=== PATIENT | male | born 1950 | race Caucasian/White ===

== ENCOUNTER 2017-04-24 20:40 | Inpatient (IN) | payer MEDICARE, OTHER ==
[~2017-04-24 20:40] MED LIST: ISOVUE-370 76%-LOCM 1 ML ONE
[2017-04-24 20:54] LABS: #Lymphocytes 0.7 thou/uL (1.20-3.40); #Monocytes 0.7 thou/uL (0.11-0.59); #Neutrophils 12.7 thou/uL (1.40-6.50); %Basophils 0.1 % (0.0-1.0); %Eosinophils 0.1 % (0.0-10.0); %Lymphocytes 4.9 % (21.0-51.0); %Monocytes 5.1 % (0.0-10.0); %Neutrophils 89.9 % (42.0-75.0); Hemoglobin 14.6 g/dL (14.0-18.0); Mean Corpuscular HGB CONC 33.8 g/dL (32.0-36.0); Mean Corpuscular Hemoglobin 29.1 pg (27.0-31.0); Mean Platelet Volume 7.2 fL (7.4-10.4); Platelet Count 227 thou/uL (130-400); RBC Distribution Width 12.2 % (11.5-14.5); Red Blood Cell (RBC) Count 5.03 mill/uL (4.70-6.10); White Blood Cell (WBC) Count 14.1 thou/uL (4.8-10.8)
[2017-04-24 21:00] LABS: INR-International Normal Ratio 1.1; PTT 25.5 SEC (22.9-36.1); Prothrombin Time 14.2 SEC (12.0-14.7)
--- NOTE | 2017-04-24 21:22 | CT ---
CT OF HEAD NONCONTRAST 04/24/17 CLINICAL HISTORY: Posttraumatic pain. FINDINGS: No evidence of acute intracranial hemorrhages, mass effect or midline shift. No depressed calvarial f racture. There is no pneumocephalus. Mild right frontal scalp prominence is seen. IMPRESSION: No acute intracranial hemorrhage or mass effect. Notification of results placed at 2103 hours, 04/24/17. Code CR
[2017-04-24 21:23] LABS: ALT (SGPT) 22 U/L (8-55); AST (SGOT) 34 U/L (5-34); Albumin 4.2 g/dL (3.4-4.8); Alkaline Phosphatase 55 U/L (40-150); Anion Gap 14 mmol/L (10-20); BUN (Urea Nitrogen) 29 mg/dL (8.4-25.7); Bilirubin, Total 0.9 mg/dL (0.2-1.2); CK (CPK) 928 U/L (30-200); Calc. Creatinine Clearance 0 mL/min (70-130); Calcium 9.2 mg/dL (7.8-10.44); Carbon Dioxide 22 mmol/L (23-31); Chloride 107 mmol/L (98-107); Estimated GFR-MDRD Greater than 90; Globulin 2.8 g/dL (2.4-3.5); Glucose 118 mg/dL (80-115); Potassium 3.9 mmol/L (3.5-5.1); Sodium 139 mmol/L (136-145)
--- NOTE | 2017-04-24 21:25 | RAD ---
PORTABLE AP CHEST X-RAY 04/24/17 HISTORY: Level II trauma. Patient fell 15 feet from a ladder 8 to 9 hours ago. FINDINGS: Postsurgical changes related to anterior cervical fusion lower cervical spine are imaged. Cardiac pushpa houette is magnified by projection. Pulmonary vasculature is within normal limits. The lungs are nina r. No pneumothorax or pleural effusion is seen. Degenerative changes are noted in the spine. No other osseous abnormality is seen on this exam. IMPRESSION: No acute cardiopulmonary process. POS: [facility]
[2017-04-24] MEDS ORDERED: Lorazepam 2 MG/ML VIAL ONE ×2 (21:39→21:58)
[2017-04-24] MEDS ORDERED: Dexamethasone 10 MG/ML VIAL ONE (21:39)
[2017-04-24 21:40] LABS: Bilirubin Negative (Negative); Blood, Urine Negative (Negative); Clarity CLOUDY (Clear); Glucose, Urine (Dipstick) Negative (Negative); Leukocyte Negative (Negative); Nitrite Negative (Negative); Protein, Urine (Dipstick) Negative (Neg-Trace); Urobilinogen 0.2 mg/dL (0.2-1.0); pH, Urine 5.5 (5.0-9.0)
[2017-04-24 21:42] LABS: Specific Gravity, Urine 1.046 (1.002-1.036)
--- NOTE | 2017-04-24 22:02 | RAD ---
AP PELVIS RADIOGRAPH 04/24/17 HISTORY: Level II trauma. Patient fell 15 feet from a ladder 8 to 9 hours ago. FINDINGS: The patient is rotated, but no obvious fracture is appreciated on this exam. No evidence of a disloca tion. There is minimal bilateral hip osteoarthritis. Calcifications overlie the pelvis likely related to phleboliths and vascular type calcifications. Degenerative changes are seen in the spine. IMPRESSION: No obvious acute fracture is visualized involving the pelvis. POS: [facility]
--- NOTE | 2017-04-24 22:45 | CT ---
CERVICAL SPINE CT NONCONTRAST 04/24/17 INDICATION: Posttraumatic pain. FINDINGS: Craniocervical junction is intact. There is a retrolisthesis of C3 on 4. There is multilevel anterior fusion spanning C5 through C7. There is heterotopic density adjacent the anterior aspect of the C3-4 disc space. There is fracture involving posterior elements of C4 at the posterior aspect of each willis eufemia, posterior aspect of each C5 lamina and the bilateral lamina of C6. Fracture extension into the b ase of the C4 and C6 spinous processes. IMPRESSION: Multilevel fracture involvement of the cervical spine posterior elements as above. There is retrolist hesis of C3 on 4. Recommend neurosurgical consultation. Findings called to the ER physician, Danial Boss at 2104 hours, 04/24/17. Code CR
[2017-04-24] MEDS ORDERED: hydrALAZINE 20 MG/ML VIAL SLOW IVP PRN (23:13)
[2017-04-24] MEDS ORDERED: Morphine 4 MG/ML Carpuject IVP PRN (23:13)
[2017-04-24] MEDS ORDERED: Sodium Bicarbonate 150 MEQ in Dextrose 5% in Water 1,000 ML IV ONE ×2 (23:13)
[2017-04-24] MEDS ORDERED: Dextrose 5% in Water 1,000 ML IV PRN (23:13)
[2017-04-24] MEDS ORDERED: Ondansetron ODT 4 MG TAB PO PRN (23:13)
[2017-04-24] MEDS ORDERED: Dextrose 50% Abboject 50 ML SYRINGE SLOW IVP PRN (23:13)
[2017-04-24] MEDS ORDERED: Morphine 2 MG/ML SYRINGE ONE (23:14)
--- NOTE | 2017-04-24 23:20 | CT ---
CT CHEST WITH CONTRAST CT ABDOMEN AND PELVIS WITH CONTRAST CT THORACIC SPINE WITH CONTRAST CT LUMBAR SPINE WITH CONTRAST 04/24/17 INDICATION: Posttraumatic pain, fall. FINDINGS: There are patchy opacities of the lower lung zones and posterior lung zones bilaterally. This may be on the basis of atelectasis or mild contusion. No evidence of significant pneumothorax or pleural flu id collection. Incidental note of fractures of the cervical spine which are described on the concurrent cervical spi ne CT exam. Reference that report for details. Scattered small hypoattenuation foci of the hepatic pa renchyma too small to further characterize. There is a small hypodensity involving the posteromedial aspect of the spleen, also incompletely characterized. There are bilateral cysts of the kidneys. No a drenal mass or hematoma. No peripancreatic inflammation. The bowel is incompletely assessed without t he presence of enteric contrast. Colonic diverticulosis is present. Mild scattered atherosclerotic va scular disease is present. Slight T2 superior endplate irregularity is present. Otherwise, evaluation of the thoracolumbar spin e reveals no significant compression fracture or significant subluxation. No displaced fracture of th e sternum. There is heterogeneity and enlargement of the prostate gland which abuts the bladder base. Scattered colonic diverticula is present. IMPRESSION: 1. Scattered patchy opacities of the lungs bilaterally as discussed above which may be on the ba sis of atelectasis and/or mild contusion. Slight T2 superior endplate irregularity is present. 2. Scattered parenchymal hypodensities of the liver, spleen and kidneys, which are likely relate d to scattered cysts. 3. Otherwise, no additional definite acute posttraumatic sequela evident. Notification of findings placed to Dr. Boss at 2116 hours, 04/24/17. Code CR
--- NOTE | 2017-04-24 23:57 | HP ---
DATE OF ADMISSION: 04/24/2017 REQUESTING PHYSICIAN: Dr. Boss. ATTENDING SURGEON: Dr. Michele. CONSULTATION: Neurosurgery, Dr. Nice. HISTORY OF PRESENT ILLNESS: The patient is a 66-year-old man, who reports working on his home this e vening when he was up on a ladder, estimated 15 feet when he fell. The patient had immediate numbnes s, tingling, paralysis to his upper extremities, and he was not able to get himself up. The patient was lying on the ground for approximately 8-9 hours before a neighbor heard him yelling and called [id number] [phone]. The patient was brought to the emergency department, evaluated, examined and was noted to have wh at appeared to be a central cord syndrome with cervical spine fractures, at which time, we were asked to evaluate the patient for admission and obtain neurosurgical consultation. Also, during his labor atory evaluation, it was noted that the patient had mild rhabdomyolysis with an elevated CK, but with normal renal function. ALLERGIES: None. CURRENT MEDICATIONS: Amlodipine, spironolactone, vitamin D, aspirin, sildenafil and fish oil. PAST MEDICAL HISTORY: Hypertension. PAST SURGICAL HISTORY: The patient has had surgery on his neck, a left knee replacement, and surgery to index finger. 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 FAMILY MEDICAL HISTORY: Hypertension. REVIEW OF SYSTEMS: Ten-point review of systems was negative, unless otherwise stated. PHYSICAL EXAMINATION: VITAL SIGNS: Blood pressure 154/88, heart rate 111, respirations 22, temperature is 98.1, oxygen sat uration is 99% on 2 liters via nasal cannula. GENERAL: The patient is resting comfortably in ER bed. He is awake, alert, and oriented x3. Glasgo w coma scale is 15. HEENT: Head: Normocephalic, atraumatic. Eyes: Extraocular motion intact. PERRLA bilaterally. Ea rs: Atraumatic without discharge. Nose: Atraumatic without discharge. Oropharynx is clear. NECK: Currently immobilized in a cervical collar. His trachea is midline. There is no JVD. CHEST: Clear to auscultation with moderate inspiratory and expiratory effort. HEART: Regular rate and rhythm, though does appear tachycardic consistent with his vital signs. ABDOMEN: Soft, flat, nontender with hypoactive bowel sounds. Pelvis is stable. EXTREMITIES: Lower extremities: The patient is able to move his lower extremities much more easily and briskly than his upper extremities. He has gross sensation in both lower extremities. Upper ext remities: He has markedly decreased movement in both his shoulder, elbow, wrists, and hands. Pulses are strong at 2+. Capillary refill is less than 3 seconds. The patient does have decreased sensati on bilaterally. BACK: By report is atraumatic and nontender. LABORATORY RESULTS: White blood cell count 14.1, hemoglobin 14.6, hematocrit 43.2, platelets 227. S odium 139, potassium 3.9, chloride 107, CO2 of 22, BUN 29, creatinine 0.77, glucose 118. LFTs are un remarkable. Lactic acid 1.8. INR 1.1, CK is 928. RADIOGRAPHIC REPORTS: AP chest shows no acute cardiopulmonary process. AP pelvis shows no acute fra cture visualized involving the pelvis. CT of the brain without contrast shows calcification of the l eft internal carotid, [place]. No intracerebral hemorrhage. Body of C1 intact. No skull f racture. CT of the C-spine without contrast shows fractures of the pedicles of C4, C5, C6 with retro listhesis of C3 and C4. CT of the chest, abdomen, and pelvis with IV contrast shows degenerative monica nges of the T and L spine, no acute processes are noted. ASSESSMENT AND PLAN: 1. Status post fall from ladder approximately 15 feet. 2. 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 3. Upper extremity weakness and paresthesias. 4. Elevated CK consistent with rhabdomyolysis without acute renal injury at this time. 5. Pain secondary to trauma. 6. Hypertension. Plan will be to make the patient n.p.o., admit the patient to the surgical floor. He has been evalua loyda by the neurosurgical service, who are starting him on Decadron. He has this MRI ordered for clarence gomez and plan will be to have surgical decompression in the morning. The patient will have pain contr ol, pulmonary toilet, gastritis prophylaxis, Arambula catheter, gastritis, mechanical DVT prophylaxis. Evaluation, examination, laboratory and radiographic findings were discussed with Dr. Michele at time of dictation, she will see the patient.
[2017-04-25] MEDS: Dexamethasone 4 mg/ml Vial SLOW IVP SCH ×2 (00:01→03:13)
--- NOTE | 2017-04-25 00:03 | MRI ---
CERVICAL SPINE MRI NONCONTRAST 04/24/17 CLINICAL HISTORY: Neck injury related to fall from ladder. FINDINGS: Redemonstration of retrolisthesis of C3 on 4. There is susceptibility related to anterior fusion span elsa C4 through C6 which does limit assessment within this region. There is prominent anterior and po sterior paraspinous edema most notable at the upper cervical spine region. There is redundancy of the ligamentum flava at the C3-4 level which does produce posterior mass effect within the thecal sac. T here is a pseudodisc bulge related to the retrolisthesis of C3-4. Combined with the mass effect from ligamentum flava, there is a moderate degree of mass effect upon the cervical spinal cord at the C3-4 level. There is associated cord edema which spans the C2-3 through proximal C4 level. There is marrow edema at multiple levels of the cervical spine involving posterior elements related t o the acute posterior element fractures that are depicted on the preceding CT exam, where osseous det ail is more optimally delineated. There is a mild degree of disc space edema involving the anterior C 3-4 level. There is a superimposed multilevel degenerative change of the postoperative cervical spine. There is minimal superior end plate height loss of T2. There is subtle increased T2 signal that suggests a ginny rotrabecular fracture centered at the superior end plate. There is redundancy and edema about the pos terior paraspinous ligament of the upper to mid cervical spine indicating ligamentous injury. There i s edema of the suboccipital soft tissues. IMPRESSION: Retrolisthesis of C3 on 4 and multilevel marrow edema related to multilevel fractures of the cervical spine as are depicted on the preceding CT cervical spine exam. There is prominent posterior as well as anterior paraspinous edema, and disruption of ligamentum flava and posterior paraspinous ligaments . Associated cord compression of the C3-4 level with cord edema. No obvious intramedullary hemorrhage i s seen. Microtrabecular fracture centered at the superior T2 end plate with minimal associated superior end p late concavity. POS: [facility]
[2017-04-25 00:38] VITALS: BMI 27.1
--- NOTE | 2017-04-25 03:39 | CON ---
DATE OF CONSULTATION: 04/24/2017 ATTENDING PHYSICIAN: Edgar Nice M.D. HISTORY OF PRESENT ILLNESS: The patient is a 66-year-old male with a past medical history of hypertension, who presented to the emergency department per [facility] after being found down by his neighbor after apparent fall from a 15- feet ladder, which patient reports occurred at approximately 10:30 this morning. The patient reports he lost his footing going up the ladder and fell prone with sudden onset loss of sensation and strength to the UEs. He reports he yelled for several hours before a neighbor finally heard him and called EMS. The patient was also complaining of cramping throughout the body. Upon arrival to the emergency department, CT of the head, cervical spine, chest, abdomen, and pelvis were done and were notable for retrolisthesis C3-C4 with some spinal canal compromise as well as multiple spinous process and laminar fractures at C4, C5, and C6. CT head was negative for acute abnormality. CT of the chest, abdomen, and pelvis was also negative for any acute abnormality. The patient's lab work was notable for an elevated CPK 928 consistent with rhabdomyolysis as well as an elevated spec grav and no urine ketones consistent with dehydration. The Trauma Service was also notified of the patient's condition. PAST MEDICAL HISTORY: Hypertension. PAST SURGICAL HISTORY: C4-C6 ACDF, left knee replacement, finger surgery. SOCIAL HISTORY: The patient does not smoke, drink, or use any drugs. FAMILY HISTORY: Noncontributory. ALLERGIES: Patient has no known drug allergies. REVIEW OF SYSTEMS: Per HPI. PHYSICAL EXAMINATION: VITAL SIGNS: Heart rate 111, blood pressure 154/88, respiration rate is 22. The patient is 99% on 2 liters. His temperature is 98.1. CONSTITUTIONAL: He is awake, alert, and oriented x4. HEAD: Normocephalic, atraumatic. EYES: PERRLA. Extraocular movements are intact. ENT: Oral mucosa is dry. He has a normal voice. NECK: He is currently wearing a cervical collar. RESPIRATORY: The patient is breathing comfortably. No evidence of respiratory distress. CARDIOVASCULAR: The patient is tachycardic. MUSCULOSKELETAL: He has decreased sensation to bilateral upper and lower extremities. He is weak in bilateral upper extremities with flaccid paralysis on the left, unable to wiggle his fingers slightly on the right upper extremity , lower extremity has 2/5 strength in bilateral lower extremities. No reflex asymmetry. NEUROLOGIC: He is A and O x4. GCS of 15. He has normal speech. Normal cranial nerve exam. He has decreased sensation to bilateral upper and lower extremities. Weakness to bilateral upper extremities/paralysis on the left, able to slightly move his fingers on the right upper extremity, 2/5 strength to bilateral lower extremities. ASSESSMENT AND PLAN: The patient appears to have retrolisthesis of C3, diffuse C4 as well as some multiple spinous process and laminar fractures at C4-C6, status post fall from a ladder. We will plan to get an MRI for further evaluation of his cervical spine injury. He will also be started on Decadron 4 , q.6h. He will be kept in a cervical collar at all times and under strict spinal precautions. He will be admitted primarily to the Trauma Service. They will assist in management of his acute rhabdomyolysis and dehydration. We will plan for posterior decompression and fusion in the morning. I have made the patient n.p.o. at midnight. Please reach out to Neurosurgery Service for additional questions or concerns. SOL
[2017-04-25 05:43] LABS: #Lymphocytes 0.6 thou/uL (1.20-3.40); #Monocytes 0.5 thou/uL (0.11-0.59); #Neutrophils 10.4 thou/uL (1.40-6.50); %Lymphocytes 5.5 % (21.0-51.0); %Monocytes 4.4 % (0.0-10.0); %Neutrophils 90.1 % (42.0-75.0); Hemoglobin 14.6 g/dL (14.0-18.0); Mean Corpuscular HGB CONC 33.6 g/dL (32.0-36.0); Mean Corpuscular Hemoglobin 28.8 pg (27.0-31.0); Mean Corpuscular Volume 85.9 fl (80.0-94.0); Mean Platelet Volume 7.2 fL (7.4-10.4); Platelet Count 212 thou/uL (130-400); RBC Distribution Width 12.1 % (11.5-14.5); Red Blood Cell (RBC) Count 5.05 mill/uL (4.70-6.10); White Blood Cell (WBC) Count 11.6 thou/uL (4.8-10.8)
[2017-04-25 06:18] LABS: Anion Gap 10 mmol/L (10-20); BUN (Urea Nitrogen) 13 mg/dL (8.4-25.7); CK (CPK) 3303 U/L (30-200); Calc. Creatinine Clearance 128 mL/min (70-130); Calcium 8.4 mg/dL (7.8-10.44); Carbon Dioxide 27 mmol/L (23-31); Chloride 104 mmol/L (98-107); Estimated GFR-MDRD Greater than 90; Glucose 139 mg/dL (80-115); Potassium 3.6 mmol/L (3.5-5.1); Sodium 137 mmol/L (136-145)
[2017-04-25] MEDS ORDERED: ePHEDrine/0.9% NaCl/PF SYRINGE 50 mg/10 ml ONE (07:15)
[2017-04-25] MEDS ORDERED: Lidocaine 1% PF 5 ML VIAL ONE (07:15)
[2017-04-25] MEDS ORDERED: Dexamethasone 20 MG/5 ML VIAL ONE (07:15)
[2017-04-25] MEDS ORDERED: Propofol 200 MG/20 ML VIAL ONE (07:15)
[2017-04-25] MEDS ORDERED: PHENYLEPHRINE-NS 100 MCG/ML 10 ML SYRINGE ONE (07:15)
[2017-04-25] MEDS ORDERED: Ondansetron HCl/PF 4 MG/2 ML Vial ONE (07:15)
[2017-04-25] MEDS ORDERED: Sodium Chloride 0.9% 10 ML ONE (07:15)
[2017-04-25] MEDS ORDERED: Succinylcholine Chloride 20 MG/ML 10 ml SYRINGE FS ONE (07:15)
[2017-04-25] MEDS ORDERED: Bacitracin Zinc Ointment 30 gm TUBE ONE (07:16)
[2017-04-25] MEDS ORDERED: Fentanyl 100 MCG/2 ML VIAL ONE ×2 (07:38→08:26)
[2017-04-25] MEDS ORDERED: CEFAZOLIN/Water 2 GM/20 ML SYRINGE ONE (07:40)
[2017-04-25] MEDS ORDERED: Famotidine/PF 20 mg/2ml Vial SLOW IVP SCH (09:00)
--- NOTE | 2017-04-25 09:43 | OP ---
DATE OF PROCEDURE: 04/25/2017 SURGEON: Edgar Nice M.D. CLINICAL DOCUMENTATION CLERK: Fadumo Barber PA-C PROCEDURES: C3-C4 laminectomy, posterolateral arthrodesis, lateral mass screws, demineralized bone m atrix, and local morselized autograft C3-C4. PROCEDURE IN DETAIL: The patient was brought to the operating room, intubated. He was rolled in the prone position in the cervical collar with the head fixed in the javad director of head start and the head julio ntained in a neutral position throughout. We obtained x-rays to ensure adequate alignment and the al ignment was actually quite satisfactory and somewhat better aligned then with the initial fracture. After secure positioning, a midline posterior cervical incision was made exposing C2 through C5. We found C4 and the posterior elements of C5 to be fractured as expected. We performed a complete C4 an d inferior C3 laminectomy and completely decompress the spinal cord. Next, lateral mass screws were placed at C3 and C4 bilaterally using lateral fluoroscopic guidance. A eric was secured between the s crews, connected by nuts which were final tightened. The wound was then extensively irrigated, immac ulate hemostasis was secured. A combination of demineralized bone matrix and local morselized autogr aft was laid over the laminar and posterolateral surfaces for the purpose of arthrodesis. Vancomycin powder was applied and the wound was closed in anatomic layers.
[2017-04-25] MEDS ORDERED: Fentanyl 250 MCG/5 ML VIAL ONE (10:20)
[2017-04-25] MEDS: Famotidine/PF 20 mg/2ml Vial SLOW IVP SCH ×2 (11:45→22:17)
--- NOTE | 2017-04-25 11:55 | PRG ---
DATE OF SERVICE: 04/25/2017 SUBJECTIVE: A 66-year-old male fell from the ladder and was down for a prolonged period of time. He has dense neurologic deficit including essentially no movement of the upper extremities. He has dean ulder shrug, presumably from spinal accessory nerve. He has burning dysesthesias in both arms. He s eems to have relatively preserved motor in the lower extremities, but deranged sensory function in th e lower extremities and he has urinary incontinent. Imaging reveals an old C4-C6 anterior cervical discectomy and fusion, which is well healed. He has s ignificant posterior bony disruption most pronounced at C4 where there is a fracture across the super ior lamina and the superior aspect of C4 down the spinal canal to some degree. There is some retroli sthesis of C3 and C4. MRI confirms spinal cord compression at this level. IMPRESSION AND PLAN: The patient sustained a severe spinal cord injury. I am recommending surgery f or the purpose of decompression and stabilization, although I am not optimistic about recovery of haim rologic function, particularly given the prolonged period prior to seeking medical attention. His me tabolic derangement has largely been corrected, although his CKs are still elevated. I am recommendi ng proceeding with posterior decompression and stabilization, most focused at the C3-C4 level. We di scussed indications, risks, benefits, and alternatives of this procedure with the patient and his fam waleska and they expressed understanding and wished to proceed.
--- NOTE | 2017-04-25 15:36 | PRG ---
DATE OF SERVICE: 04/25/2017 ATTENDING PHYSICIAN: Dr. Michele. SUBJECTIVE: The patient is a 66-year-old male who had a fall of approximately 15 feet yesterday from a ladder. He had immediate numbness, tingling and paralysis to his upper extremities and was not ab le to get himself up. He laid in his yard for approximately 8-9 hours before he was discovered by a neighbor and was brought to the [facility]. Evaluation showed fractures of C4, C5, and C6. He is now postop day 0 status post posterior decompression and fusion. Currently, [facility]. He is not reporting any pain at the moment. OBJECTIVE: VITAL SIGNS: BP 135/74, pulse 58, temperature 97.8, respirations 16, O2 sat 98% on 2 liters nasal ca nnula. GENERAL: The patient is a middle-aged adult male, resting comfortably in bed. He does not appear to be in any acute distress. HEENT: Normocephalic. He has a laceration on his right lateral head, which has been stapled. [facility] C[facility]lar in place. RESPIRATORY: The patient's lung sounds are clear to auscultation bilaterally. CARDIOVASCULAR: He has a regular rate and rhythm with a normal S1 and S2. ABDOMEN: Soft, nontender, nondistended. His bowel sounds are hypoactive. EXTREMITIES: Lower extremities: He is neurovascularly intact bilaterally. NEUROLOGIC: He moves both lower extremities appropriately on the patient's upper extremities. His l ight touch sensation is intact bilaterally. He has very minimal motor function. His note teller strength i s 1/5 bilaterally. NEUROLOGIC: The patient is alert and oriented x3. His GCS is 15. His neurological deficits are dirk cribed above. LABORATORY DATA: Hematology: WBC is 11.6, hemoglobin 14.6, hematocrit 43.4, platelets 212. Gis Geographer ry: Sodium 137, potassium 3.6, chloride 104, bicarbonate 27, BUN 13, creatinine 0.71, glucose 139. CK 3303. IMAGING: There are no images to review since admission. ASSESSMENT: 1. Status post fall from approximately 15 feet. 2. Central cord syndrome. 3. C3 through C5 fracture status post decompressive laminectomy and fusion. 4. Rhabdomyolysis without acute renal injury. 5. Acute traumatic pain. 6. History of hypertension. PLAN: 1. The patient will be given supportive care measures and pain control as needed, gastritis prophyla xis will be initiated and a chemical DVT prophylaxis will be initiated when okay with Neurosurgery. 2. The patient to remain in a C-collar at all times. 3. The patient will be given aggressive fluid maintenance for rhabdomyolysis. We will continue to t rend kidney function daily. This patient was seen postoperatively and discussed with Dr. Melvin Briceño, who agrees with the asses sment and plan.
--- NOTE | 2017-04-25 15:38 | EKG ---
Test Reason : Blood Pressure : / mmHG Vent. Rate : 112 BPM Atrial Rate : 112 BPM P-R Int : 152 ms QRS Dur : 148 ms QT Int : 368 ms P-R-T Axes : 072 012 034 degrees QTc Int : 502 ms Sinus tachycardia Right bundle branch block Abnormal ECG Confirmed by ELANA AYON, SARTHAK Martini ([id number]), editorial writer YANET MANE ([id number]) on 04/25/2017 3:38:21 PM Referred By: Confirmed By:SARTHAK HUITRON MD
[2017-04-25] MEDS: Ondansetron HCl/PF 4 MG/2 ML Vial IVP PRN (15:43)
[2017-04-25] MEDS: Sodium Chloride 0.9% 1,000 ML IV SCH ×3 (16:18→18:56)
[2017-04-25] MEDS ORDERED: traMADol HCl 50 MG TAB PO SCH (17:30)
[2017-04-25] MEDS ORDERED: traMADol HCl 50 MG TAB PO PRN (17:31)
[2017-04-25] MEDS ORDERED: Acetaminophen 500 MG TAB PO SCH (18:00)
[2017-04-25] MEDS: traMADol HCl 50 MG TAB PO SCH ×2 (18:46→23:31)
[2017-04-25] MEDS ORDERED: HYDROcodone/Acetaminophen 10/325 mg Tablet PO PRN ×2 (22:04)
[2017-04-26] MEDS: Cyclobenzaprine 10 MG TAB PO PRN ×3 (00:09→20:36)
--- NOTE | 2017-04-26 01:08 | ADD-HP ---
ADDENDUM Mr. Lawrence was seen this morning before he was taken to the operating room by Dr. Nice. For fu ll details, please see the H&P dictated by Alfredo Goyal, Trauma PA, in conjunction with whom I saw the patient. In short, Mr. Lawrence is a 66-year-old man who was working on his home. He was about 15 f eet up on a ladder and fell off onto his right side. He was unable to get up and had tingling and pa ralysis of his upper extremities. He was on the ground for 8 or 9 hours before a neighbor heard him and called 911. He had a mildly elevated CK and was found to have multiple cervical fractures and wa s admitted for MRI resuscitation and decompression in the operating room this morning. He has no sig nificant medical problems except for mild hypertension. No allergies. He has had a cervical fusion in the past as well as left knee replacements and some hand surgery, but no abdominal surgeries. He reports no other significant pain. His sensation appears to be mostly intact. A complete physical e xamination was performed by myself with no significant findings except for some mild abdominal tender ness, dense paresis of his upper extremities and he is able to lift his left foot off the bed against gravity and some resistance, but is barely able to lift his right leg off the bed against gravity. Toe and ankle movement is slightly weak, but better. Sensation is intact to all four extremities. L abs and x-rays are reviewed and are as per the record. ASSESSMENT AND PLAN: Spinal cord injury due to cervical fractures and retrolisthesis at the level of C3 and C4 with no other significant injuries identified on imaging or exam. Dr. Nice took him t o the operating room today for decompression and stabilization of cervical fractures. His neurologic prognosis is guarded. No other significant injuries have been identified and his vital signs are st able. He may have some myolysis related to his period of inactivity before he was found, but his yeimy al function and urine output has been okay. We will continue to monitor this and hydrate him.
[2017-04-26] MEDS: traMADol HCl 50 MG TAB PO SCH ×3 (06:23→18:07)
[2017-04-26 07:51] LABS: #Basophils 0.1 thou/uL (0.0-0.2); #Lymphocytes 1.4 thou/uL (1.20-3.40); #Monocytes 1.3 thou/uL (0.11-0.59); #Neutrophils 10.4 thou/uL (1.40-6.50); %Basophils 0.5 % (0.0-1.0); %Eosinophils 0.1 % (0.0-10.0); %Lymphocytes 10.6 % (21.0-51.0); %Monocytes 10.1 % (0.0-10.0); %Neutrophils 78.7 % (42.0-75.0); Hemoglobin 13.6 g/dL (14.0-18.0); Mean Corpuscular HGB CONC 32.7 g/dL (32.0-36.0); Mean Corpuscular Hemoglobin 29.2 pg (27.0-31.0); Mean Corpuscular Volume 89.4 fl (80.0-94.0); Mean Platelet Volume 7.4 fL (7.4-10.4); Platelet Count 197 thou/uL (130-400); RBC Distribution Width 12.4 % (11.5-14.5); Red Blood Cell (RBC) Count 4.66 mill/uL (4.70-6.10); White Blood Cell (WBC) Count 13.2 thou/uL (4.8-10.8)
[2017-04-26 08:14] LABS: Anion Gap 13 mmol/L (10-20); BUN (Urea Nitrogen) 15 mg/dL (8.4-25.7); CK (CPK) 1745 U/L (30-200); Calc. Creatinine Clearance 126 mL/min (70-130); Calcium 8.5 mg/dL (7.8-10.44); Carbon Dioxide 25 mmol/L (23-31); Chloride 103 mmol/L (98-107); Estimated GFR-MDRD Greater than 90; Glucose 83 mg/dL (80-115); Magnesium 2.2 mg/dL (1.6-2.6); Phosphorus 2.3 mg/dL (2.3-4.7); Potassium 3.9 mmol/L (3.5-5.1); Sodium 137 mmol/L (136-145)
[2017-04-26] MEDS: Sodium Chloride 0.9% 1,000 ML IV SCH ×2 (08:27→16:15)
[2017-04-26] MEDS: Acetaminophen 325 MG TAB PO SCH ×3 (08:28→20:31)
[2017-04-26] MEDS: Famotidine/PF 20 mg/2ml Vial SLOW IVP SCH ×2 (08:29→20:36)
--- NOTE | 2017-04-26 18:25 | PRG ---
DATE OF SERVICE: 04/26/2017 ATTENDING PHYSICIAN: Dr. Michele. SUBJECTIVE: The patient is a 66-year-old male who had a fall approximately 15 feet two days ago from a ladder. He laid in his yard for approximately 8-9 hours before being brought to the [place] ED where he was found to have fractures of C4, C5, and C6. He is now postop day #1 status post posteri or decompression and fusion. Currently, he is stable on the surgical floor and continues to have sym ptoms of central cord syndrome. He reports that his pain is mostly well controlled although he does report some "soreness in his shoulders." OBJECTIVE: VITAL SIGNS: Blood pressure 144/85, pulse 74, temperature 97.9, respirations 16, O2 sat 99% on room air. GENERAL APPEARANCE: The patient is a middle-aged adult male, resting comfortably in bed. He has a C -collar in place and does not appear to be in any acute distress. HEENT: Normocephalic, atraumatic. C-collar in place as above. RESPIRATORY: His lung sounds are clear to auscultation bilaterally. CARDIOVASCULAR: He has a regular rate and rhythm with no murmurs, gallops or rubs. ABDOMEN: Soft, nontender, nondistended. His bowel sounds are hypoactive. EXTREMITIES: He is neurovascularly intact bilaterally in his lower extremities. His strength with p lantar flexion is 4/5. His strength with dorsiflexion is 4.5/5. His upper extremities, he has minim al movement in his shoulders, left arm slightly better than the right. 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 NEUROLOGIC: He is alert and oriented x3 this morning. His GCS is 15. Other neurologic abnormalitie s as described above. LABORATORY DATA: Hematology: WBC is 13.2, hemoglobin 13.6, hematocrit 41.7, platelets 197. Hobber ry: Sodium 137, potassium 3.9, chloride 103, bicarbonate 25, BUN 15, creatinine 0.72, glucose 83. C reatine kinase is 1745 today down from 3303 yesterday. IMAGING: There are no images to review today. ASSESSMENT: 1. Status post fall from approximately 15 feet. 2. Central cord syndrome. 3. C3 through C5 fracture status post decompressive laminectomy and fusion. 4. Rhabdomyolysis without acute renal injury. 5. Acute traumatic pain. 6. History of hypertension. PLAN: 1. Continue pain control, gastritis prophylaxis and other supportive care measures as needed. 2. The patient to remain in the C-collar at all times. 3. The patient getting maintenance fluids of 150 mL per hour for rhabdomyolysis. We will continue t o trend kidney function. This patient was discussed over the phone with Dr. Melvin Briceño who agrees with this assessment and plan.
[2017-04-27] MEDS: traMADol HCl 50 MG TAB PO SCH ×4 (00:49→18:49)
[2017-04-27] MEDS: Sodium Chloride 0.9% 1,000 ML IV SCH ×2 (01:02→09:00)
[2017-04-27] MEDS: Acetaminophen 325 MG TAB PO SCH ×4 (03:10→21:44)
[2017-04-27 05:36] LABS: #Lymphocytes 1.2 thou/uL (1.20-3.40); #Neutrophils 6.2 thou/uL (1.40-6.50); %Basophils 0.4 % (0.0-1.0); %Eosinophils 0.5 % (0.0-10.0); %Lymphocytes 14.7 % (21.0-51.0); %Monocytes 11.2 % (0.0-10.0); %Neutrophils 73.2 % (42.0-75.0); Hemoglobin 12.3 g/dL (14.0-18.0); Mean Corpuscular HGB CONC 31.5 g/dL (32.0-36.0); Mean Corpuscular Hemoglobin 27.9 pg (27.0-31.0); Mean Corpuscular Volume 88.4 fl (80.0-94.0); Mean Platelet Volume 7.3 fL (7.4-10.4); Platelet Count 185 thou/uL (130-400); RBC Distribution Width 12.3 % (11.5-14.5); Red Blood Cell (RBC) Count 4.42 mill/uL (4.70-6.10); White Blood Cell (WBC) Count 8.5 thou/uL (4.8-10.8)
[2017-04-27 06:18] LABS: Anion Gap 9 mmol/L (10-20); BUN (Urea Nitrogen) 15 mg/dL (8.4-25.7); Calc. Creatinine Clearance 128 mL/min (70-130); Calcium 8.1 mg/dL (7.8-10.44); Carbon Dioxide 28 mmol/L (23-31); Chloride 102 mmol/L (98-107); Estimated GFR-MDRD Greater than 90; Glucose 92 mg/dL (80-115); Magnesium 2.1 mg/dL (1.6-2.6); Phosphorus 2.1 mg/dL (2.3-4.7); Potassium 3.8 mmol/L (3.5-5.1); Sodium 135 mmol/L (136-145)
[2017-04-27] MEDS: Cyclobenzaprine 10 MG TAB PO PRN ×2 (06:53→21:44)
[2017-04-27] MEDS: Ondansetron HCl/PF 4 MG/2 ML Vial IVP PRN (10:25)
[2017-04-27] MEDS: Gabapentin 300 MG CAP PO SCH ×2 (14:33→21:44)
--- NOTE | 2017-04-27 17:32 | PRG ---
DATE OF SERVICE: 04/27/2017 ATTENDING PHYSICIAN: Melvin Briceño DO SUBJECTIVE: The patient is a 66-year-old male who had a fall of approximately 15 feet, 3 days ago fr om a ladder. He was found lying in his yard after approximately 8 to 9 hours before being brought to [place] ED. He has suffered rhabdomyolysis as a result of his prolonged immobility. Currently, he is postop day #2 status post posterior decompression and fusion for his C4, C5, and C6 fractures. He is currently stable in the surgical floor with improvement, but continuing symptoms of central co rd syndrome. OBJECTIVE: VITAL SIGNS: BP 143/79, pulse 72, temperature 98.7, respirations 20, O2 sat 98% on 1 liter. GENERAL APPERANCE: The patient is a middle-aged adult male resting comfortably in bed. He has a C-c ollar in place and does not appear to be in any acute distress. HEENT: Normocephalic and atraumatic. C-collar in place. RESPIRATORY: His lungs are clear to auscultation bilaterally with normal effort. CARDIOVASCULAR: He has a regular rate and rhythm with no murmurs, gallops, or rubs. ABDOMEN: Soft, nontender, but obese. His bowel sounds are hypoactive. EXTREMITIES: He is neurovascularly intact bilaterally in his lower extremities. His strength with p lantar flexion is 4/5. His strength with dorsiflexion is 4/5. In the upper extremities, he is able to shrug his shoulder somewhat today. Left arm is still slightly better than the right. 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 NEUROLOGIC: He is alert and oriented this morning. His GCS is 15. His other neurological abnormali ties are described above. LABORATORY DATA: Hematology: WBC is 8.5, hemoglobin 12.3, hematocrit 39.1, platelets 185. Chemistr y: Sodium 135, potassium 3.8, chloride 102, bicarbonate 28, BUN 15, creatinine 0.71, glucose 92, yaritza cium 8.1, phosphorus 2.1, magnesium 2.1. IMAGING: There are no images to review today. ASSESSMENT: 1. Status post fall from approximately 15 feet. 2. Central cord syndrome. 3. C3 through C5 fracture status post decompressive laminectomy and fusion. 4. Rhabdomyolysis without acute renal injury. 5. Acute traumatic pain. 6. History of hypertension, present on admission. PLAN: 1. We will continue pain control, gastritis prophylaxis, and other supportive care measures as neede d. 2. The patient to remain in collar at all times. 3. We can discontinue the patient's fluid now that he has good p.o. intake and his CK is strongly tr ending downward. We will continue to monitor kidney function. 4. Case management following for discharge planning, possibly to neural rehabilitation in [place] or to [facility] rehab here. The patient was seen and examined along with Dr. Melvin Briceño, who agrees with the assessment and pl an.
[2017-04-27] MEDS ORDERED: Potassium Phosphate 15 MMOL in Sodium Chloride 0.9% 250 ML 250 ML IVPB SCH (17:45)
[2017-04-27] MEDS: Scopolamine 1.5 mg/72 hour Patch TD SCH (18:52)
[2017-04-28] MEDS: traMADol HCl 50 MG TAB PO SCH ×4 (00:54→17:39)
[2017-04-28] MEDS: Acetaminophen 325 MG TAB PO SCH ×4 (00:54→21:36)
[2017-04-28] MEDS: Senokot S 8.6-50 MG TAB PO SCH ×2 (09:17→21:19)
[2017-04-28] MEDS: Amlodipine 5 MG TAB PO SCH (09:17)
[2017-04-28] MEDS: Tamsulosin HCl 0.4 MG CAP PO SCH (09:17)
[2017-04-28] MEDS: Gabapentin 300 MG CAP PO SCH ×3 (09:17→21:21)
[2017-04-28] MEDS: Polyethylene Glycol 3350 17 GM Packet PO SCH (09:17)
[2017-04-28] MEDS: Bisacodyl 10 MG SUPP PR SCH (09:18)
--- NOTE | 2017-04-28 09:42 | ULT ---
BILATERAL LOWER EXTREMITY VENOUS DOPPLER ULTRASOUND: Date: 04/28/17 HISTORY: Pain in legs, immobility. TECHNIQUE: Weiner scale ultrasound with color flow and spectral Doppler imaging of the deep venous systems of the lower extremities was performed bilaterally. FINDINGS: There is good flow, compression, and augmentation noted in the common femoral, femoral, deep femoral, popliteal, posterior tibial, and greater saphenous veins on either side. IMPRESSION: No evidence of deep venous thrombosis in either lower extremity. POS: WALKER
[2017-04-28] MEDS ORDERED: Spironolactone 25 MG TAB PO SCH (10:00)
--- NOTE | 2017-04-28 19:46 | PRG ---
DATE OF SERVICE: 04/28/2017 ATTENDING PHYSICIAN: Dr. Melvin Briceño. SUBJECTIVE: This patient is a 66-year-old male, who fell approximately 15 feet off of a ladder. He was found lying in his yard after approximately 8-9 hours before being transported to the hospital. He was noted that have rhabdomyolysis. CK peaked on 04/25/2017 at 3303, the following day it was 174 5. His urine color has remained clear yellow. Currently, he is postoperative day #3, status post po sterior decompression and fusion for a C4, C5, and C6 fractures. He is currently stable on the surgi yaritza floor. He is in a cervical collar. He is continuing to work with physical and rn occupational health apy. He states pain is well controlled. OBJECTIVE: VITAL SIGNS: Temperature 97.9, pulse 95, respirations 16, O2 sat is 93% on room air, and blood press ure is 130/88. GENERAL: The patient is a well-developed, well-nourished male sitting up in bed. No acute distress. HEENT: Normocephalic, atraumatic. Cervical collar in place. RESPIRATORY: No respiratory distress. Respirations even and unlabored. The patient currently pulli ng 1500 mL on incentive spirometer. CARDIOVASCULAR: Regular rate and rhythm. ABDOMEN: Soft, nontender, nondistended. EXTREMITIES: Weakness noted to all extremities, right greater than left. He is currently experienci ng a needle-like tingling sensation when his upper extremities are touched. NEUROLOGIC: GCS 15. Awake, alert, oriented x3. ASSESSMENT: 1. Status post fall from height. 2. C3 through C5 fracture status post decompressive laminectomy and fusion. 3. Central cord syndrome. 4. Rhabdomyolysis, resolving. 5. Acute traumatic pain, controlled. PLAN: 1. Discussed with Neurosurgery today about initiation of chemical DVT prophylaxis. At the time of t his dictation, a venogram has been obtained and there is no evidence for deep venous thrombosis in bi lateral lower extremities. The patient will be started on Lovenox 30 mg b.i.d. 2. Continue cervical collar as ordered by Neurosurgery. 3. Case management following for discharge planning. After extensive discussion with family, it romulo ears that the patient's choice is to be discharged to [facility] rehabilitation in [place]. 4. The patient is medically cleared for discharge when accepted to neuro rehabilitation. The patient was seen and examined with Dr. Briceño, who agrees with the assessment and plan.
[2017-04-28] MEDS: Cyclobenzaprine 10 MG TAB PO PRN (21:19)
[2017-04-28] MEDS: Enoxaparin Sodium 30 MG/0.3 ML SYRINGE SC SCH (21:36)
[2017-04-29] MEDS: Acetaminophen 325 MG TAB PO SCH ×2 (00:58→08:14)
[2017-04-29] MEDS: traMADol HCl 50 MG TAB PO SCH ×2 (00:58→06:37)
[2017-04-29] MEDS ORDERED: Spironolactone 25 MG TAB PO SCH (08:00)
[2017-04-29] MEDS: Spironolactone 25 MG TAB PO SCH (08:14)
[2017-04-29] MEDS: Tamsulosin HCl 0.4 MG CAP PO SCH (08:14)
[2017-04-29] MEDS: Senokot S 8.6-50 MG TAB PO SCH ×2 (08:14→21:10)
[2017-04-29] MEDS: Amlodipine 5 MG TAB PO SCH (08:15)
[2017-04-29] MEDS: Enoxaparin Sodium 30 MG/0.3 ML SYRINGE SC SCH ×2 (08:15→21:11)
[2017-04-29] MEDS: Bisacodyl 10 MG SUPP PR SCH (08:15)
[2017-04-29] MEDS: Polyethylene Glycol 3350 17 GM Packet PO SCH (08:15)
[2017-04-29] MEDS: Gabapentin 300 MG CAP PO SCH (08:15)
[2017-04-29] MEDS ORDERED: Morphine 2 MG/ML SYRINGE SLOW IVP PRN (08:54)
[2017-04-29] MEDS ORDERED: Pregabalin 25 MG CAP PO SCH (09:00)
[2017-04-29] MEDS ORDERED: Gabapentin 300 MG CAP PO SCH (09:00)
[2017-04-29] MEDS ORDERED: Ketorolac Tromethamine 30 MG/ML VIAL IVP SCH (09:00)
[2017-04-29] MEDS ORDERED: HYDROcodone/Acetaminophen 10/325 mg Tablet PO PRN (09:29)
[2017-04-29] MEDS: HYDROcodone/Acetaminophen 10/325 mg Tablet PO SCH ×4 (09:40→21:10)
--- NOTE | 2017-04-29 10:02 | PRG ---
DATE OF SERVICE: 04/29/2017 HISTORY OF PRESENT ILLNESS: A 66-year-old man postoperative day #4 status post C3-C4 laminectomy for C3/C4 fracture dislocation and a central cord syndrome. The patient remains functionally quadripleg ic. He does, however, have movement to both lower extremities, left upper extremity motor function i s improved. The patient is able to make a fist in the left hand. His sensation is preserved in bila teral lower extremities as well as left upper extremity. Sensation is preserved in the right upper e xtremity down to the level of the wrist. The patient had no intrinsic movement of the right hand. T his morning, he is complaining of severe neck and right shoulder pain. He also complains of profound nausea with minimum relief with antiemetics. He has not had any bowel movement, although he is pass ing flatus. He denies any dyspnea. He has a good cough effort today. He is using incentive spirome ter achieving 5834-9149 mL. Urinary output is adequate. PHYSICAL EXAMINATION: CURRENT VITAL SIGNS: Includes blood pressure 131/75, pulse 95, respiratory rate 16, temperature 98.1 degrees Fahrenheit, oxygen saturation is 98% on room air. HEENT: Examination reveals pupils equal, round, reactive to light and accommodation. He has no jugu lar venous distention noted. HEART: Reveals regular rate and rhythm. No murmurs or gallops auscultated. CHEST: Clear to auscultation bilaterally. Breathing is regular and unlabored. ABDOMEN: Soft, nontender, and nondistended. Bowel sounds in all four quadrants appear normoactive. Liver and spleen remain nonpalpable below costal margins. EXTREMITIES: Reveals 2+ radial and pedal pulses bilaterally. He has no ankle edema present. MUSCULOSKELETAL: Examination reveals 3/5 bilateral lower extremity as well as left upper extremity. Right upper extremity is 1/5. IMPRESSION: 1. Postoperative day #4, status post C3/C4 laminectomy and spinal fusion. 2. C3/C4 fracture dislocation with central cord syndrome. 3. Posttraumatic neuropathic pain. PLAN: We will revise current pain regimen to optimize pain control. Continue with physical and occu pational therapy. The patient is being evaluated by PM&R for possible inpatient rehabilitation. He certainly will be transferred to inpatient rehabilitation once bed becomes available. The above find ings and plan discussed with the patient who indicates understanding of the information given. I krunal payton his questions.
[2017-04-29] MEDS: Pregabalin 75 MG CAP PO SCH (21:09)
[2017-04-30] MEDS: HYDROcodone/Acetaminophen 10/325 mg Tablet PO SCH ×6 (02:42→21:56)
[2017-04-30] MEDS ORDERED: Magnesium Citrate 300 ML BOT PO SCH (09:00)
[2017-04-30] MEDS: Amlodipine 5 MG TAB PO SCH (09:04)
[2017-04-30] MEDS: Enoxaparin Sodium 30 MG/0.3 ML SYRINGE SC SCH ×2 (09:04→20:36)
[2017-04-30] MEDS: Spironolactone 25 MG TAB PO SCH (09:04)
[2017-04-30] MEDS: Senokot S 8.6-50 MG TAB PO SCH ×2 (09:05→20:37)
[2017-04-30] MEDS: Pregabalin 75 MG CAP PO SCH ×2 (09:05→20:34)
[2017-04-30] MEDS: Ibuprofen 800 MG TAB PO SCH ×3 (09:05→17:49)
[2017-04-30] MEDS: Polyethylene Glycol 3350 17 GM Packet PO SCH (09:06)
[2017-04-30] MEDS: Tamsulosin HCl 0.4 MG CAP PO SCH (09:06)
[2017-04-30] MEDS: Bisacodyl 10 MG SUPP PR SCH (09:06)
[2017-04-30] MEDS ORDERED: Fleet Enema 133 ML BOT PR SCH (15:45)
[2017-04-30] MEDS: Scopolamine 1.5 mg/72 hour Patch TD SCH (17:48)
--- NOTE | 2017-04-30 18:26 | PRG ---
DATE OF SERVICE: 04/30/2017 ATTENDING PHYSICIAN: Dr. Melvin Briceño. SUBJECTIVE: The patient is a 66-year-old male who is postoperative day #5 status post C3-C4 laminect carter for C3-C4 fracture dislocation and central cord syndrome. He complained of increased upper extre mity shoulder pain yesterday, necessitating a medication change. Gabapentin was discontinued and Lyr ica was started. He was also started on NSAID. This morning, he states the pain is much better. He has had no additional nausea. He still complaints of constipation, unrelieved by stool softeners, s uppositories. OBJECTIVE: VITAL SIGNS: Blood pressure 146/96, pulse 96, respirations 16, O2 sat 93% on room air, temperature 9 8.1. HEENT: Atraumatic, normocephalic. Cervical collar in place. CARDIOVASCULAR: Regular rate and rhythm. Heart sounds normal. PULMONARY: Clear to auscultation. No respiratory distress. ABDOMEN: Soft, nontender, mildly distended. Weakness noted in all extremities. Weakness is greater than right than left, 1/5 on right, 3/5 on left. NEUROLOGIC: GCS of 15. Awake, alert, and oriented x3. ASSESSMENT: 1. Status post fall from height. 2. C3 through C5 fracture status post decompressive laminectomy and fusion. 3. Central cord syndrome. 4. Posttraumatic neuropathic pain. PLAN: 1. Continue current pain regimen. 2. Add mag citrate to stimulate bowel movement today. If no bowel movement, we will consider enema today. 3. Lovenox for DVT prophylaxis. 4. The patient pending rehabilitation. Case management following. The patient was seen and examined along with Dr. Briceño who agrees with the assessment and plan.
[2017-04-30] MEDS: Cyclobenzaprine 10 MG TAB PO PRN (20:34)
[2017-05-01] MEDS: HYDROcodone/Acetaminophen 10/325 mg Tablet PO SCH ×6 (01:16→21:39)
[2017-05-01] MEDS: Amlodipine 5 MG TAB PO SCH (08:32)
[2017-05-01] MEDS: Spironolactone 25 MG TAB PO SCH (08:32)
[2017-05-01] MEDS: Enoxaparin Sodium 30 MG/0.3 ML SYRINGE SC SCH ×2 (08:32→21:31)
[2017-05-01] MEDS: Pregabalin 75 MG CAP PO SCH ×2 (08:33→21:31)
[2017-05-01] MEDS: Ibuprofen 800 MG TAB PO SCH ×3 (08:33→17:47)
[2017-05-01] MEDS: Tamsulosin HCl 0.4 MG CAP PO SCH (08:33)
[2017-05-01] MEDS: Bisacodyl 10 MG SUPP PR SCH (08:34)
[2017-05-01] MEDS: Senokot S 8.6-50 MG TAB PO SCH ×2 (08:34→21:27)
[2017-05-01] MEDS: Polyethylene Glycol 3350 17 GM Packet PO SCH (08:34)
--- NOTE | 2017-05-01 11:19 | PRG ---
DATE OF SERVICE: 05/01/2017 SUBJECTIVE: Mr. Lawrence is a 66-year-old man who is postop day #5 today status post C3-4 laminectom y for C3/C4 fracture dislocation and central cord syndrome. The patient reports adequate pain contro l this morning. He is awake and alert. He has finally had a 2 bowel movements overnight. Urinary o utput has been adequate through Arambula catheter. He has improved to movement of his left upper and le ft lower extremities. Right lower extremity movement is better than yesterday, although the patient remains functionally quadriplegic. OBJECTIVE: VITAL SIGNS: This morning includes blood pressure 147/84, pulse is 84, respiratory rate is 18, maxim um temperature in the last 24 hours is 98.3 degrees Fahrenheit. Oxygen saturation is 94% on 2 liters by nasal cannula oxygen. HEENT: Reveals normocephalic and atraumatic. Pupils equal, round, and reactive to light and accommo dation. HEART: Reveals regular rate and rhythm. No murmurs or gallops auscultated. RESPIRATORY: Clear to auscultation bilaterally. Breathing regular and unlabored. The patient has a better cough effort today. He uses incentive spirometer achieving 1750 mL. ABDOMEN: Soft, nontender, nondistended. EXTREMITIES: Reveals 2+ radial and pedal pulses bilaterally. No ankle edema is present. NEUROLOGIC: Cranial nerves II-XII grossly intact bilaterally. [place] coma scale is 15. MUSCULOSKELETAL: Reveals 5/5 muscle strength in left lower extremity. Right lower extremity is 3/5. Left upper extremity is 2/5, right upper extremity is 1/5. He has better intrinsic muscle use to t he left hand, but absent intrinsics on the right hand. IMPRESSION: 1. Postoperative day #5, status post C3/C4 laminectomy. 2. C3/C4 fracture dislocation with central cord syndrome, neurologically improving. 3. Resolving posttraumatic neuropathic pain. PLAN: 1. Arambula catheter will be discontinued and urinary output will be monitored. We may perform cathete rization p.r.n. urinary retention. 2. Continue with physical and occupational therapy. 3. The patient is being evaluated by PM&R and will be transferred to inpatient rehabilitation once b ed becomes available. Above findings and plan discussed with the patient and his family at bedside. They all indicated und erstand information given. I answered their questions.
[2017-05-02] MEDS: HYDROcodone/Acetaminophen 10/325 mg Tablet PO SCH ×6 (02:16→21:36)
[2017-05-02] MEDS: Senokot S 8.6-50 MG TAB PO SCH ×2 (09:27→21:37)
[2017-05-02] MEDS: Polyethylene Glycol 3350 17 GM Packet PO SCH (09:27)
[2017-05-02] MEDS: Enoxaparin Sodium 30 MG/0.3 ML SYRINGE SC SCH ×2 (09:27→21:38)
[2017-05-02] MEDS: Amlodipine 5 MG TAB PO SCH (09:27)
[2017-05-02] MEDS: Pregabalin 75 MG CAP PO SCH ×2 (09:28→21:37)
[2017-05-02] MEDS: Tamsulosin HCl 0.4 MG CAP PO SCH (09:28)
[2017-05-02] MEDS: Spironolactone 25 MG TAB PO SCH (09:28)
[2017-05-02] MEDS: Ibuprofen 800 MG TAB PO SCH ×3 (09:28→18:04)
[2017-05-02] MEDS: Bisacodyl 10 MG SUPP PR SCH (14:20)
--- NOTE | 2017-05-02 15:15 | PRG ---
DATE OF SERVICE: 05/02/2017 ATTENDING PHYSICIAN: Melvin Briceño D.O. SUBJECTIVE: Mr. Lawrence is a 66-year-old man who is postoperative day #6 status post C3-4 laminecto my for C3-4 fracture dislocation and central cord syndrome. He had issues earlier in the week with p ain control. Pain medications were altered and he has not had any subsequent pain control issues. F oley catheter was discontinued yesterday; however, the patient was unable to void necessitating in an d out catheter. A Arambula was replaced this morning and he is draining adequate amount of clear yellow urine. He continues to work with physical and occupational therapy. Left side continues to be much stronger than right side. OBJECTIVE: VITAL SIGNS: Temperature 98.4, pulse 90, blood pressure 143/85, O2 sat 93% on room air. HEENT: Atraumatic, normocephalic. CARDIOVASCULAR: Regular rate and rhythm. Heart sounds normal. RESPIRATORY: Clear to auscultation bilaterally. No respiratory distress. A 5219-0375 mL incentive spirometer volumes. ABDOMEN: Soft, nontender, and nondistended. EXTREMITIES: Cap refill brisk. 2+ pulses to all extremities. Weakness noted in all extremities, ri ght greater than left. NEUROLOGIC: GCS 15. Awake, alert, oriented x3. ASSESSMENT: 1. Status post fall from height. 2. C3-4 fracture dislocation with central cord syndrome. 3. Postop day #6 status post C3-4 laminectomy. 4. Motor and sensory improving. 5. Urinary retention, Arambula catheter replaced. PLAN: 1. Continue oral analgesia as ordered. 2. Continue Arambula catheter. 3. Encourage incentive spirometry, deep breathing and coughing. 4. Continue with physical and occupational therapy. 5. Patient is medically clear for rehabilitation. Hopefully, he will be discharged to rehab once in [facility] approved. 6. Protonix for PUD prophylaxis. 7. Lovenox for DVT prophylaxis. The patient was reviewed with Dr. Briceño, who agrees with the plan.
[2017-05-02] MEDS: Acetaminophen 325 MG TAB PO SCH ×2 (18:05→23:24)
[2017-05-03] MEDS: HYDROcodone/Acetaminophen 10/325 mg Tablet PO SCH ×5 (00:52→17:09)
[2017-05-03] MEDS: Acetaminophen 325 MG TAB PO SCH ×4 (04:39→23:16)
[2017-05-03] MEDS: Ibuprofen 800 MG TAB PO SCH ×3 (09:35→16:59)
[2017-05-03] MEDS: Amlodipine 5 MG TAB PO SCH (09:36)
[2017-05-03] MEDS: Spironolactone 25 MG TAB PO SCH (09:36)
[2017-05-03] MEDS: Pregabalin 75 MG CAP PO SCH ×2 (09:37→20:44)
[2017-05-03] MEDS: Senokot S 8.6-50 MG TAB PO SCH ×2 (09:39→20:44)
[2017-05-03] MEDS: Polyethylene Glycol 3350 17 GM Packet PO SCH (09:39)
[2017-05-03] MEDS: Enoxaparin Sodium 30 MG/0.3 ML SYRINGE SC SCH ×2 (09:40→20:45)
[2017-05-03] MEDS: Tamsulosin HCl 0.4 MG CAP PO SCH (09:40)
[2017-05-03] MEDS: Bisacodyl 10 MG SUPP PR SCH (09:41)
--- NOTE | 2017-05-03 16:15 | PRG ---
DATE OF SERVICE: 05/03/2017 ATTENDING PHYSICIAN: Dr. Melvin Briceño. SUBJECTIVE: Mr. Lawrence is a 66-year-old man who is status post C3-4 laminectomy, postoperative day #7. He had a C3-C4 fracture dislocation and central cord syndrome after he fell from a height. [facility] medicine was changed yesterday to schedule Tylenol with [place] for breakthrough pain. Arambula cathete r remains in place. He continues to work with physical and occupational therapy. Left side continue s to be much stronger than the right. OBJECTIVE: VITAL SIGNS: Temperature 97.4, pulse 87, blood pressure 121/74, respirations 16, O2 sat 94% on room air. HEENT: Atraumatic, normocephalic. CARDIOVASCULAR: Regular rate and rhythm. Heart sounds normal. RESPIRATORY: Clear to auscultation bilaterally. No respiratory distress. A 1500 incentive spiromet er volumes. ABDOMEN: Soft, nontender, and nondistended. Bowel sounds normal. EXTREMITIES: Cap refill brisk. 2+ pulses in all extremities. Weakness noted in all extremities, ri ght greater than left. NEUROLOGIC: GCS 15. Awake, alert and oriented x3. ASSESSMENT: 1. Status post fall from height. 2. C3-4 fracture dislocation with central cord syndrome. 3. Postoperative day #7, status post C3-4 laminectomy. 4. Continue to work with physical and occupational therapy. He is still having significant weakness in right upper extremity. Moves left upper extremity and left lower extremity. Also, moves right l ower extremity, right side much weaker than left side. PLAN: 1. Continue scheduled Tylenol with [place] for breakthrough pain. 2. Continue Arambula catheter. 3. Encourage incentive spirometry and pulmonary toilet. 4. Continue physical and occupational therapy. 5. Patient is medically cleared for rehabilitation. Per their report, they are under the impression that they will be hearing from rehab by the next 1-2 days. 6. Protonix for PUD prophylaxis. 7. Lovenox for DVT prophylaxis. Patient was reviewed with Dr. rBiceño who agrees with the assessment and plan.
[2017-05-03] MEDS ORDERED: HYDROcodone/Acetaminophen 10/325 mg Tablet PO PRN (17:41)
[2017-05-03] MEDS: Scopolamine 1.5 mg/72 hour Patch TD SCH (18:11)
[2017-05-04] MEDS: Acetaminophen 325 MG TAB PO SCH (06:11)
[2017-05-04] MEDS ORDERED: Potassium Phosphate 15 MMOL in Sodium Chloride 0.9% 250 ML 250 ML IVPB SCH (08:00)
[2017-05-04] MEDS ORDERED: traMADol HCl 50 MG TAB PO SCH (08:30)
[2017-05-04] MEDS ORDERED: Acetaminophen 500 MG TAB PO SCH (09:00)
[2017-05-04] MEDS: Polyethylene Glycol 3350 17 GM Packet PO SCH (10:16)
[2017-05-04] MEDS: Ibuprofen 800 MG TAB PO SCH ×3 (10:16→18:14)
[2017-05-04] MEDS: Senokot S 8.6-50 MG TAB PO SCH ×2 (10:16→20:36)
[2017-05-04] MEDS: Spironolactone 25 MG TAB PO SCH (10:16)
[2017-05-04] MEDS: Enoxaparin Sodium 30 MG/0.3 ML SYRINGE SC SCH ×2 (10:16→20:35)
[2017-05-04] MEDS: Pregabalin 75 MG CAP PO SCH ×2 (10:17→20:36)
[2017-05-04] MEDS: traMADol HCl 50 MG TAB PO SCH ×3 (10:17→20:36)
[2017-05-04] MEDS: Amlodipine 5 MG TAB PO SCH (10:17)
[2017-05-04] MEDS: Tamsulosin HCl 0.4 MG CAP PO SCH (10:17)
[2017-05-04] MEDS: Bisacodyl 10 MG SUPP PR SCH (10:18)
[2017-05-04] MEDS: Acetaminophen 500 MG TAB PO SCH ×2 (10:52→18:15)
--- NOTE | 2017-05-04 11:54 | PRG ---
DATE OF SERVICE: 05/04/2017 SUBJECTIVE: Mr. Lawrence is a 66-year-old man who is postoperative day #9 status post C3-4 laminecto my with posterolateral arthrodesis. The patient is awake and alert today. He remains functionally p araplegic at this time, with central cord syndrome. He was able to ambulate yesterday with assistance coming from the physical and occupational therapy. The patient reports adequate pain control. He is tolerating a general diet, having normal bowel fun ction. He continues to have urinary retention which required catheterization. PHYSICAL EXAMINATION: VITAL SIGNS: Otherwise have remained stable over the weekend. Currently, blood pressure is 134/80, pulse 79, respiratory rate 16, temperature 98.1 degrees Fahrenheit, oxygen saturation is 94% on room air. GENERAL: The patient has better cough efforts today. He is using incentive spirometer and achieving almost 2000 mL. HEENT: Pupils equal, round, and reactive to light and accommodation. Extraocular muscles are intact bilaterally. He has no sclerae icterus present. HEART: Reveals regular rate and rhythm, no murmurs or gallops auscultated. CHEST: Lungs clear to auscultation bilaterally. Breathing regular and unlabored. EXTREMITIES: Reveals 2+ radial and pedal pulses bilaterally. He has no ankle edema present. NEUROLOGIC: [place] Coma Scale is 15. MUSCULOSKELETAL: Musculoskeletal examination reveals a 3/5 muscle strength in bilateral lower extrem ities and 1/5 in bilateral upper extremities. The patient has a better intrinsics to left hand. He has no intrinsic to the right hand. IMPRESSION: 1. Postoperative day 9 status post C3/C4 laminectomy and cervical spine fusion. 2. C3-C4 fracture dislocation with central cord syndrome. The patient is hemodynamically and neurologically stable. PLAN: 1. Continue physical and occupational therapy and advance activity as tolerated. 2. The patient is awaiting transfer to inpatient rehabilitation once a bed becomes available.
[2017-05-05] MEDS: Acetaminophen 500 MG TAB PO SCH ×4 (00:39→18:05)
[2017-05-05] MEDS: traMADol HCl 50 MG TAB PO SCH ×4 (03:30→20:36)
[2017-05-05] MEDS: Tamsulosin HCl 0.4 MG CAP PO SCH (09:13)
[2017-05-05] MEDS: Ibuprofen 800 MG TAB PO SCH ×3 (09:13→18:05)
[2017-05-05] MEDS: Amlodipine 5 MG TAB PO SCH (09:13)
[2017-05-05] MEDS: Spironolactone 25 MG TAB PO SCH (09:14)
[2017-05-05] MEDS: Polyethylene Glycol 3350 17 GM Packet PO SCH (09:14)
[2017-05-05] MEDS: Enoxaparin Sodium 30 MG/0.3 ML SYRINGE SC SCH ×2 (09:14→20:36)
[2017-05-05] MEDS: Senokot S 8.6-50 MG TAB PO SCH ×2 (09:14→20:37)
[2017-05-05] MEDS: Pregabalin 75 MG CAP PO SCH ×2 (09:14→20:37)
--- NOTE | 2017-05-05 11:41 | PRG ---
DATE OF SERVICE: 05/05/2017 ATTENDING PHYSICIAN: Dr. Melvin Briceño. SUBJECTIVE: Mr. Lawrence is 66-year-old male who was admitted after a fall from approximately 15 fee t with symptoms of central cord syndrome. He is now postop day 10 status post C3 and C4 laminectomy with posterolateral arthrodesis. The patient continues to have urinary retention requiring Arambula cat heterization. He is ambulating with assistance from physical therapy. He reports that his pain is a dequately controlled this morning. He is doing well on a general diet with normal bowel function. H e voices no other complaints on exam today. OBJECTIVE: VITAL SIGNS: BP 120/72, pulse 74, temperature 96.2, respirations 16, O2 sat 93% on room air. GENERAL APPEARANCE: Patient is a middle-aged adult male in no acute distress. HEENT: Normocephalic and atraumatic. He has a C-collar in place. RESPIRATORY: His breath sounds are clear to auscultation bilaterally with normal effort. CARDIOVASCULAR: He has regular rate and rhythm. Normal S1 and S2. ABDOMEN: Soft, nontender, and nondistended. He has normal bowel sounds. EXTREMITIES: He has 2+ pulses bilaterally in his extremities. His cap refill is less than 2 seconds . His right arm is in a sling this morning. He is still weak in all extremities with 3/5 strength i n his lower extremities and 1/5 in his upper extremities. His right is worse than his left. NEUROLOGIC: His GCS is 15. He has no other neurologic deficits except those as mentioned above. LABORATORY DATA: There are no labs to review today. IMAGING: There are no images to review today. ASSESSMENT: 1. Status post fall from height. 2. C3 and C4 fracture dislocation with central cord syndrome. 3. Functional quadriplegia. PLAN: 1. Continue to provide pain control as currently ordered. 2. Continue Arambula catheterization. Anticipate that the patient will need continued help with bladde r training beyond this hospital stay. 3. Encourage incentive spirometry and pulmonary toileting. 4. Continue to work with PT and OT. 5. Case management is following for discharge placement. We are still working on [facility]habil[facility]. This patient was seen and examined on rounds with Dr. Charles who agrees with the assessment and plan .
[2017-05-05] MEDS: Bisacodyl 10 MG SUPP PR SCH (14:43)
--- NOTE | 2017-05-05 15:44 | PQF ---
CLINICAL DOCUMENTATION IMPROVEMENT CLARIFICATION FORM: ICD-10 Updated PLEASE DO AN ADDENDUM TO THE PROGRESS NOTE WITH ANY DOCUMENTATION UPDATES OR ADDITIONS AND CARRY THROUGH TO DC SUMMARY. THANK YOU. DATE: 05/05/17 ATTN: DR. CAIN Please exercise your independent, professional judgment in responding to the clarification form. Clinical indicators are provided on the bottom of this form for your review Please check appropriate box(s): [ ] NON-TRAUMATIC RHABDOMYOLYSIS [ X ] TRAUMATIC RHABDOMYOLYSIS [ ] Other diagnosis [ ] Unable to determine In addition, please specify: Present on Admission (POA): [ X ] Yes [ ] No [ ] Unable to determine For continuity of documentation, please document condition throughout progress notes and discharge summary. Thank You. CLINICAL INDICATORS - SIGNS / SYMPTOMS / LABS H&P: "THE PATIENT IS A 66-YEAR-OLD MAN, WHO REPORTS WORKING ON HIS HOME THIS EVENING WHEN HE WAS UP ON A LADDER, ESTIMATED 15 FEET WHEN HE FELL." PROGRESS NOTE 04/25: "RHABDOMYOLYSIS WITHOUT ACUTE RENAL INJURY" CREATININE KINASE: 3303 RISKS: FALL FROM LADDER TREATMENT: IV FLUIDS (GIVEN IN ER) SPIRONOLACTONE (04/29-PRESENT) (This form is maintained as a part of the permanent medical record) 2014 [employer]. All Rights Reserved [email or web address] Office: [phone] [facility]
--- NOTE | 2017-05-05 21:42 | PRG ---
DATE OF SERVICE: 05/05/2017 SUBJECTIVE: Mr. Lawrence is a 66-year-old male status post fall from ladder with central cord syndro me. He is currently awaiting final disposition to inpatient rehabilitation. This is pending insuran ce authorization. Upon my evaluation this evening, he vocalized no complaint. OBJECTIVE: VITAL SIGNS: Reviewed and stable. GENERAL: The patient is resting in bed in no acute distress. Breathing is nonlabored. NECK: C-collar is in place. Physical exam unchanged from earlier. ASSESSMENT AND PLAN: As documented in daily progress note. Continue care as ordered. Continue to m onitor. Await final disposition pending case management and insurance.
[2017-05-06] MEDS: Acetaminophen 500 MG TAB PO SCH ×5 (00:27→23:31)
[2017-05-06] MEDS: traMADol HCl 50 MG TAB PO SCH ×4 (03:15→20:32)
[2017-05-06 06:09] LABS: #Eosinphils 0.3 thou/uL (0.0-0.7); #Lymphocytes 1.3 thou/uL (1.20-3.40); #Monocytes 0.9 thou/uL (0.11-0.59); %Basophils 0.4 % (0.0-1.0); %Eosinophils 3.3 % (0.0-10.0); %Monocytes 8.9 % (0.0-10.0); %Neutrophils 75.5 % (42.0-75.0); Hemoglobin 13.9 g/dL (14.0-18.0); Mean Corpuscular HGB CONC 33.1 g/dL (32.0-36.0); Mean Corpuscular Hemoglobin 28.5 pg (27.0-31.0); Mean Corpuscular Volume 86.1 fl (80.0-94.0); Mean Platelet Volume 6.6 fL (7.4-10.4); Platelet Count 358 thou/uL (130-400); Red Blood Cell (RBC) Count 4.87 mill/uL (4.70-6.10); White Blood Cell (WBC) Count 10.6 thou/uL (4.8-10.8)
[2017-05-06 06:26] LABS: Anion Gap 13 mmol/L (10-20); BUN (Urea Nitrogen) 23 mg/dL (8.4-25.7); Calc. Creatinine Clearance 126 mL/min (70-130); Calcium 9.3 mg/dL (7.8-10.44); Carbon Dioxide 24 mmol/L (23-31); Chloride 99 mmol/L (98-107); Estimated GFR-MDRD Greater than 90; Glucose 102 mg/dL (80-115); Potassium 4.4 mmol/L (3.5-5.1); Sodium 132 mmol/L (136-145)
[2017-05-06] MEDS: Ibuprofen 800 MG TAB PO SCH ×3 (07:16→17:37)
[2017-05-06] MEDS: Bisacodyl 10 MG SUPP PR SCH (09:07)
[2017-05-06] MEDS: Pregabalin 75 MG CAP PO SCH ×2 (10:05→20:31)
[2017-05-06] MEDS: Enoxaparin Sodium 30 MG/0.3 ML SYRINGE SC SCH ×2 (10:05→20:33)
[2017-05-06] MEDS: Spironolactone 25 MG TAB PO SCH (10:06)
[2017-05-06] MEDS: Amlodipine 5 MG TAB PO SCH (10:06)
[2017-05-06] MEDS: Senokot S 8.6-50 MG TAB PO SCH ×2 (10:06→20:33)
[2017-05-06] MEDS: Tamsulosin HCl 0.4 MG CAP PO SCH (10:06)
[2017-05-06] MEDS: Polyethylene Glycol 3350 17 GM Packet PO SCH (10:11)
[2017-05-06] MEDS: Scopolamine 1.5 mg/72 hour Patch TD SCH (20:28)
--- NOTE | 2017-05-06 22:13 | PRG ---
DATE OF SERVICE: 05/06/2017 ATTENDING PHYSICIAN: Dr. Melvin Briceño. SUBJECTIVE: Mr. Lawrence is a 66-year-old male who was admitted after a fall from approximately 15-f eet with symptoms of central cord syndrome. He is now postoperative day #11, status post C3 and C4 l aminectomy with posterolateral arthrodesis. The patient has had a Arambula in place for ongoing problem s with urinary retention. He is ambulating with assistance from physical therapy and reports that hi s pain is adequately controlled. He has no complaints on exam this morning. OBJECTIVE: VITAL SIGNS: BP 126/73, pulse 77, temperature 98.3, respirations 16, O2 sat 95% on room air. GENERAL APPEARANCE: Patient is a middle-aged adult male in no acute distress. HEENT: He is normocephalic, atraumatic. He has C-collar in place. RESPIRATORY: His breath sounds are clear to auscultation bilaterally with normal effort. CARDIOVASCULAR: He is regular rate and rhythm. Normal S1 and S2. ABDOMEN: Soft, nontender, nondistended. He has normal bowel sounds. EXTREMITIES: He has 2+ pulses bilaterally in his extremities. He has 3/5 strength in his lower extr emities and 1/5 strength in his upper extremities with right more impaired than his left. NEUROLOGIC: His GCS is 15. He has no other focal neurologic deficits except as mentioned above. LABORATORY DATA: WBC is 10.6, hemoglobin 13.9, hematocrit 41.9, platelets 358. Chemistry: Sodium 1 32, potassium 4.4, chloride 99, bicarbonate 24, BUN 23, creatinine 0.72, glucose 102, calcium 9.3, ph osphorus 3.0, magnesium 2.0. IMAGING: There are no images to review today. ASSESSMENT: 1. Status post fall from height. 2. C3 and C4 fracture dislocation with central cord syndrome. 3. Functional quadriplegia. 4. Urinary retention. 5. Mild hyponatremia. PLAN: 1. Continue to provide pain control as currently ordered, which is adequate. 2. Continue Arambula catheterization. We will consider doing a bladder trial tomorrow if patient is no t going to transfer to rehabilitation. 3. Continue incentive spirometry and pulmonary toileting. 4. Continue mobilization with PT and OT. 5. We will limit patient's free water intake for his mild hyponatremia. 6. Case management is following for discharge placement. Anticipate discharge to [facility] as soon as a bed becomes available. This patient was seen and examined on rounds with Dr. Melvin Briceño, who agrees with the assessment a nd plan.
[2017-05-06] MEDS: Cyclobenzaprine 10 MG TAB PO PRN (23:31)
--- NOTE | 2017-05-07 00:49 | PRG ---
DATE OF SERVICE: 05/06/2017 SUBJECTIVE: A 66-year-old male status post fall from ladder with central cord syndrome. The patient is currently awaiting final disposition to inpatient rehabilitation. At this time, we are awaiting a [id number] review. Upon my evaluation, the patient had a chief complaint of right shoulder pain. OBJECTIVE: VITAL SIGNS: Reviewed and stable. The patient is afebrile. GENERAL: Resting in bed in no acute distress. RESPIRATORY: Breathing is nonlabored. EXTREMITIES: Right arm has not consistent with muscle spasm in the area of the bicep. ASSESSMENT AND PLAN: As documented in daily progress note. Continue care as ordered. Continue to m onitor. The patient reminded that he has access to Flexeril for muscle spasms. Otherwise, continue care as ordered and continue to monitor. Await final disposition to inpatient rehabilitation/insuran ce approval.
[2017-05-07] MEDS: traMADol HCl 50 MG TAB PO SCH ×4 (04:12→20:14)
[2017-05-07] MEDS: Acetaminophen 500 MG TAB PO SCH ×4 (04:55→23:56)
[2017-05-07] MEDS: Tamsulosin HCl 0.4 MG CAP PO SCH (08:39)
[2017-05-07] MEDS: Amlodipine 5 MG TAB PO SCH (08:39)
[2017-05-07] MEDS: Senokot S 8.6-50 MG TAB PO SCH ×2 (08:40→20:15)
[2017-05-07] MEDS: Pregabalin 75 MG CAP PO SCH ×2 (08:40→20:13)
[2017-05-07] MEDS: Enoxaparin Sodium 30 MG/0.3 ML SYRINGE SC SCH ×2 (08:40→20:16)
[2017-05-07] MEDS: Spironolactone 25 MG TAB PO SCH (08:40)
[2017-05-07] MEDS: Polyethylene Glycol 3350 17 GM Packet PO SCH (08:40)
[2017-05-07] MEDS: Bisacodyl 10 MG SUPP PR SCH (08:45)
[2017-05-07] MEDS: Ibuprofen 800 MG TAB PO SCH ×3 (08:45→17:06)
--- NOTE | 2017-05-07 16:53 | PRG ---
DATE OF SERVICE: 05/07/2017 ATTENDING PHYSICIAN: Dr. Melvin Briceño. SUBJECTIVE: Mr. Lawrence is a 66-year-old male who was admitted after a fall from approximately 15 f eet with symptoms of a central cord syndrome. He is now postop day #12 status post C3 and C4 laminec shorty with posterolateral arthrodesis. The patient has had a Arambula in place for ongoing problems of u rinary retention. He is ambulating with assistance from physical therapy and reports his pain is dong quately controlled. He has no other complaints this morning except that he wishes his Arambula can be r emoved. OBJECTIVE: VITAL SIGNS: Blood pressure 138/76, pulse 67, temperature 97.5, respirations 18, O2 sat 96% on room air. GENERAL APPEARANCE: The patient is a middle aged male, in no acute distress. HEENT: His head is normocephalic and atraumatic. He has a C-collar in place. RESPIRATORY: His breath sounds are clear to auscultation bilaterally with normal effort. CARDIOVASCULAR: He has regular rate and rhythm. Normal S1 and S2. ABDOMEN: His abdomen is soft, nontender, nondistended. He has normal bowel sounds. EXTREMITIES: He has 2+ pulses bilaterally in his extremities. He has 3/5 strength in his lower extr emities and 1/5 strength in his right upper extremity, 2/5 in his left upper extremity. NEUROLOGIC: His GCS is 15 this morning. He has no neurologic deficits except those as mentioned abo ve. LABORATORY DATA: There are no labs to review today. IMAGING DATA: There are no images to review today. ASSESSMENT: 1. Status post fall from height. 2. A C3 and C4 fracture dislocation with central cord syndrome. 3. Functional quadriplegia. 4. Urinary retention. 5. Mild hyponatremia. PLAN: 1. Continue pain control as currently ordered. 2. We will discontinue the patient's Arambula this morning. 3. Continue incentive spirometry and pulmonary toileting. 4. Continue mobilization with PT and OT. 5. Continue to free water intake limitations for his mild hyponatremia. 6. Case management following. The patient has been accepted to [facility] rehabilitation and will dischar ge as soon as bed becomes available. This patient was seen and examined on rounds by Dr. Melvin Briceño who agrees with the assessment and plan.
--- NOTE | 2017-05-07 21:33 | PRG ---
DATE OF SERVICE: 05/07/2017 SUBJECTIVE: This is a 66-year-old male status post fall from ladder with central cord syndrome. Shayna walton was accepted to inpatient rehabilitation earlier today. A bed will be available for him tomorro w. Additionally, his Arambula catheter has been removed. Patient reports being able to void multiple t imes since catheter removal with small volumes. He is due for bladder scan at approximately [address] Otherwise, patient vocalized no concerns or complaints and is eagerly anticipating discharge in the morning. OBJECTIVE: Vital signs reviewed and stable. Patient is afebrile, resting in bed, in no acute distre ss. Breathing is nonlabored. Physical examination is otherwise unchanged from earlier today. ASSESSMENT AND PLAN: As documented in daily progress note. Continue care as ordered. Continue to m onitor. We will follow up bladder scan results later this evening. If greater than 400 mL, we will in and out catheterization, otherwise, we will encourage patient to continue to attempt to void. Shayna walton is already on Flomax. We will consider adding terazosin, after discussion with day-shift team.
[2017-05-08] MEDS: traMADol HCl 50 MG TAB PO SCH ×3 (04:13→15:45)
[2017-05-08 05:56] LABS: Bilirubin Negative (Negative); Blood, Urine Moderate (Negative); Clarity CLEAR (Clear); Glucose, Urine (Dipstick) Negative (Negative); Leukocyte Small (Negative); Nitrite Positive (Negative); Protein, Urine (Dipstick) Negative (Neg-Trace); Specific Gravity, Urine 1.013 (1.002-1.036); pH, Urine 5.5 (5.0-9.0)
[2017-05-08 05:58] LABS: Bacteria/HPF 1+ HPF (None Seen); Hyaline Casts/LPF 0-3 HYALINE CAST LPF (0-3 Hyaline); RBC/HPF 0-3 HPF (0-3); Squamous Epithelial None Seen HPF (0-3); WBC/HPF 0-3 HPF (0-3)
[2017-05-08] MEDS: Acetaminophen 500 MG TAB PO SCH ×2 (06:18→11:48)
[2017-05-08] MEDS ORDERED: Cipro 250 MG TAB PO SCH ×2 (08:00→20:00)
[2017-05-08] MEDS: Pregabalin 75 MG CAP PO SCH (08:21)
[2017-05-08] MEDS: Enoxaparin Sodium 30 MG/0.3 ML SYRINGE SC SCH (08:21)
[2017-05-08] MEDS: Spironolactone 25 MG TAB PO SCH (08:22)
[2017-05-08] MEDS: Tamsulosin HCl 0.4 MG CAP PO SCH (08:23)
[2017-05-08] MEDS: Ibuprofen 800 MG TAB PO SCH ×2 (08:23→11:48)
[2017-05-08] MEDS: Amlodipine 5 MG TAB PO SCH (08:23)
[2017-05-08] MEDS: Bisacodyl 10 MG SUPP PR SCH (08:23)
[2017-05-08] MEDS: Polyethylene Glycol 3350 17 GM Packet PO SCH (08:24)
[2017-05-08] MEDS: Senokot S 8.6-50 MG TAB PO SCH (08:24)
[2017-05-08 11:18] VITALS: BP 116/71; TEMP 97.7
--- NOTE | 2017-05-08 14:28 | DIS ---
DATE OF ADMISSION: 04/24/2017 DATE OF DISCHARGE: 05/08/2017 ADMITTING PHYSICIAN: Vadim Michele M.D. DISCHARGING PHYSICIAN: Dr. Melvin Briceño. CONSULTING PHYSICIAN: Dr. Nice, Neurosurgery. CHIEF COMPLAINT: Fall from 15 feet. HOSPITAL DIAGNOSES: 1. C4 through C6 fracture with spinal cord injury. 2. Rhabdomyolysis. 3. Acute neuropathic pain. 4. Urinary retention. 5. Urinary tract infection. 6. Central cord syndrome. PROCEDURES: C3 through C4 laminectomy, posterolateral arthrodesis, lateral mass screws, demineralize d bone matrix, and local morcellized autograft C3 through C4. DATE OF PROCEDURE: 04/25/2017 SURGEON: Dr. Edgar Nice. Please refer to Dr. Nice's operative report for complete detail s. DISCHARGE CONDITION: Stable, discharged to inpatient rehabilitation at [facility]. DISPOSITION: [facility] rehab in [place], [place]. DIET: Regular. THERAPY: Physical and occupational therapy. EQUIPMENT: Cervical collar. FOLLOWUP: Dr. Nice. BRIEF HISTORY OF HOSPITALIZATION: Mr. Lawrence is a 66-year-old man who was apparently working on [employer] when he was up on a ladder approximately 15 feet and fell to the ground. He had immediate num bness, tingling and paralysis to his upper extremities and he was not able to get himself up. He lacy d on the ground for approximately 8-9 hours before EMS was summoned. [facility] and a cervical spine fracture with spinal cord injury was i dentified. He was admitted to the surgical floor by Trauma [facility]. Neurosurgery was consulted. Brie nowak was then taken to the operating room for C3-4 laminectomy with posterior lateral arthrodesis. He w as then managed on the surgical floor. He remained functionally paraplegic with central cord syndrom e. Postoperatively, he had issues with urinary retention, necessitating an extended Arambula catheter. When Arambula was discontinued, he was unable to void, requiring in and out catheter and eventual repla cement of Arambula catheter. He began mobilizing with physical and occupational therapy. He was able t o begin walking a short distance with physical and occupational therapy. On 05/07/2017, he was start ed on Cipro for urinary tract infection. Case management followed for discharge planning. He contin ued to work with physical and occupational therapy while awaiting insurance approval for placement in rehabilitation. On 05/08/2017, he was accepted and discharged to [facility] rehabilitation in [place]. Brie nowak is to follow up with Dr. Nice after discharge from rehabilitation. The patient was seen and examined on day of discharge with Dr. Briceño who agreed with the assessment a nd plan for discharge.
== END 2017-05-08 16:05 | DRG 957 ==
LOC: ERS 20:40 → SURG A 21:00
PROVIDERS: ADMIT Surgery; ATTEND Surgery
PROC: 0RG1071 Fusion of Cervical Vertebral Joint with Autologous Tissue Substitute, Posterior Approach, Posterior Column, Open Approach (ICD-10-PCS; principal; 2017-04-25)
DX: S14.123A Central cord syndrome at C3 level of cervical spinal cord, initial encounter (principal); R53.2 Functional quadriplegia; T79.6XXA Traumatic ischemia of muscle, initial encounter; E87.1 Hypo-osmolality and hyponatremia; N39.0 Urinary tract infection, site not specified; S14.124A Central cord syndrome at C4 level of cervical spinal cord, initial encounter; S12.200A Unspecified displaced fracture of third cervical vertebra, initial encounter for closed fracture; S12.300A Unspecified displaced fracture of fourth cervical vertebra, initial encounter for closed fracture; W11.XXXA Fall on and from ladder, initial encounter; Y92.008 Other place in unspecified non-institutional (private) residence as the place of occurrence of the external cause; I10 Essential (primary) hypertension; R33.9 Retention of urine, unspecified
CPT/HCPCS: 36415; 51702; 70450; 71045; 71260; 72125; 72141; 72170; 74177; 76001; 80048; 80053; 81003; 81015; 82550; 83605; 83735; 84100; 85025; 85610; 85730; 86850; 86900; 86901; 87077; 87086; 87186; 93005; 93970; 94640; 94760; 96360; 96361; 96374; 96375; 96376; 99292; A4216; C1713; C1768; G0390; G8978-GP-CL; G8979-GP-CI; G8979-GP-CK; G8987-GO-CN; G8988-GO-CJ; G8996-GN-CJ; G8997-GN-CI; J1100; J1650; J1885; J2001; J2060; J2270; J2405; J2704; J3010; J3370; J3490; J7050; J7070; J7620; Q0162; S0028